=== PATIENT | male | born 1970 | race Caucasian/White ===

== ENCOUNTER 2018-03-14 20:53 | Emergency (ER) | payer MEDICAID ==
[2018-03-14] MEDS ORDERED: metFORMIN* 500 MG TAB PO ONE (21:31)
[2018-03-14] MEDS ORDERED: Insulin GLARGINE(*) 1 UNITS UNIT SUBCUT ONE (21:31)
--- NOTE | 2018-03-14 21:35 | ED ---
Throat Pain/Nasal Congestion - HPI Summary HPI Summary: Pt is 47 y/o M c/o sore throat onsetting 1 week ago. Assoc. Sx: Sore throat, cough, congestion, slight SOB, increased urinary frequency. Denies: fever, CP. Notes his blood sugar was measured at 412 on Thursday and is unable to get DM meds until tomorrow. Pt currently takes 150 units Lantis, 1000 mg metformin, 10 mg climeporide each day for problem. - History of Current Complaint Chief Complaint: EDDiabeticProb Time Seen by Provider: 03/14/18 21:18 Hx Obtained From: Patient Onset/Duration: Sudden Onset, Lasting Weeks - 1 week, Still Present Cough: Other: - Sputum not noted - Allergies/Home Medications Allergies/Adverse Reactions: Allergies Allergy/AdvReac Type Severity Reaction Status Date / Time No Known Allergies Allergy Verified 03/14/18 21:23 Home Medications: Home Medications Atorvastatin Calcium [Lipitor] 40 mg PO DAILY 03/14/18 [History Confirmed ] Glimepiride 1 mg PO DAILY 03/14/18 [History Confirmed 03/14/18] Insulin Glargine,Hum.rec.anlog [Lantus] 100 unit SC DAILY 03/14/18 [History Confirmed 03/14/18] Lisinopril 10 mg PO DAILY 03/14/18 [History Confirmed 03/14/18] Metformin HCl 1,000 mg PO BID 03/14/18 [History Confirmed 03/14/18] [place]-3 Acid Ethyl Esters [Lovaza 1 gm] 2 cap PO DAILY 03/14/18 [History Confirmed 03/14/18] Rivaroxaban TAB(*) [Xarelto 20 mg] 10 mg PO DAILY 03/14/18 [History Confirmed ] Trazodone HCl 75 mg PO DAILY 03/14/18 [History Confirmed 03/14/18] PMH/Surg Hx/FS Hx/Imm Hx Endocrine/Hematology History: Reports: Hx Diabetes Sensory History: Denies: Hx Legally Blind Infectious Disease History: No Infectious Disease History: Denies: Traveled Outside the [place] in Last 30 Days - Family History Known Family History: Positive: Unknown - Social History Occupation: Unemployed Lives: Alone Review of Systems Negative: Fever Positive: Other - Sinus congestion Negative: Chest Pain Positive: Shortness Of Breath, Cough - productive cough producing colored sputum Positive: frequency - increased All Other Systems Reviewed And Are Negative: Yes Physical Exam - Summary Physical Exam Summary: Appearance: Well-appearing, Well-nourished, lying in bed comfortably Skin: Warm, dry, no obvious rash Eyes: sclera anicteric, no conjunctival pallor ENT: mucous membranes moist, pharynx appears normal Neck: Supple, nontender Respiratory: Clear to auscultation, no signs of respiratory distress Cardiovascular: Normal S1, S2. No murmurs. Normal distal pulses in tibial and radial bilaterally. Abdomen: Soft, nontender, normal active bowel sounds present Musculoskeletal: Normal, Strength/ROM Intact Neurological: A&Ox3, awake and alert, mentation is normal, speech is fluent and appropriate Psychiatric: affect is normal, does not appear anxious or depressed Triage Information Reviewed: Yes Vital Signs On Initial Exam: Initial Vitals Temp Pulse Resp BP Pulse Ox 97.9 F 96 16 141/93 97 03/14/18 21:01 03/14/18 21:01 03/14/18 21:01 03/14/18 21:01 03/14/18 21:01 Vital Signs Reviewed: Yes Diagnostics - Vital Signs Vital Signs Temp Pulse Resp BP Pulse Ox 03/14/18 21:01 97.9 F 96 16 141/93 97 - Laboratory Result Diagrams: 03/14/18 21:55 03/15/18 01:53 Lab Statement: Any lab studies that have been ordered have been reviewed, and results considered in the medical decision making process. EENT Course/Dx - Course Course Of Treatment: 39-year-old man with diabetes presents with elevated blood sugar. Additionally, his chemistries indicated incipient or mild have any ketoacidosis. As he was not terribly ill and his numbers were not dramatically abnormal, I elected to hydrate him here in the ED and treat him with some subcutaneous insulin. His bicarbonate has improved and his anion gap is resolved, and his blood sugar has improved remarkably. I believe he is stable for discharge now. He is due to get his medications later today and will resume home. - Diagnoses Provider Diagnoses: Diabetes mellitus out of control Discharge - Sign-Out/Discharge Documenting (check all that apply): Patient Departure - Discharge Plan Condition: Improved Disposition: HOME Patient Education Materials: Type 2 Diabetes in Adults (ED) Referrals: Tate Dickey MD [Primary Care Provider] - - Billing Disposition and Condition Condition: IMPROVED Disposition: Home
[2018-03-14 22:06] LABS: ABS Basophils 0.1 10^3/ul (0-0.2); ABS Eosinophils 0.2 10^3/ul (0-0.6); ABS Monocytes 0.8 10^3/ul (0-0.8); ABS Neutrophils 3.9 10^3/ul (1.5-7.7); ABS Nucleated RBC 0 10^3/ul; Eosinophil % 2.7 % (0-6); Hematocrit 47 % (42-52); Hemoglobin 16.2 g/dl (14.0-18.0); Lymphocyte % 28.9 % (25-47); Mean Corpuscular HGB Conc 34 g/dl (31-36); Mean Corpuscular Hemoglobin 33 pg (27-31); Mean Corpuscular Volume 97 fL (80-94); Mean Platelet Volume 8.6 um3 (7.4-10.4); Nucleated Red Blood Cells % 0; Platelet Count 248 10^3/ul (150-450); Red Blood Count 4.86 10^6/ul (4.00-5.40); Red Cell Distribution Width 13 % (10.5-15); White Blood Count 6.9 10^3/ul (3.5-10.8)
[2018-03-14 22:25] LABS: EGFR Non-African American 91.2 (>60)
[2018-03-14] MEDS ORDERED: NS 0.9% 1000 ML* 2,000 ML IV ONE (23:21)
[2018-03-14] MEDS ORDERED: Insulin LISPRO* 1 UNITS UNIT SUBCUT ONE (23:21)
[2018-03-14] MEDS ORDERED: Dextrose 50% Syringe 50 ML* 25 GM/50 ML SYRINGE IV PUSH PRN (23:21)
[2018-03-15 02:17] LABS: EGFR Non-African American 128.8 (>60)
[2018-03-15 02:53] VITALS: BP 141/87
== END 2018-03-15 02:57 | disposition home or self-care (01) ==
LOC: ED 20:53
DX: E11.65 Type 2 diabetes mellitus with hyperglycemia (principal); Z79.4 Long term (current) use of insulin; Z79.84 Long term (current) use of oral hypoglycemic drugs; J02.9 Acute pharyngitis, unspecified; R05 Cough; R09.81 Nasal congestion; R06.02 Shortness of breath; R35.0 Frequency of micturition
CPT/HCPCS: 36415; 80048; 85025; 96360; 96372; 99283; A9270-GY